=== PATIENT | female | born 1980 | race Hispanic/Latino ===

== ENCOUNTER 2019-02-27 07:41 | Emergency (ER) | payer MEDICAID, OTHER ==
[2019-02-27] MEDS ORDERED: KETOROLAC TROMETHAMINE 30MG/ML ONE (08:09)
== END 2019-02-27 11:54 | disposition home or self-care (01) ==
LOC: EDH 07:41
DX: S20.219A Contusion of unspecified front wall of thorax, initial encounter (principal); Z98.51 Tubal ligation status; W51.XXXA Accidental striking against or bumped into by another person, initial encounter; Y93.89 Activity, other specified; Y92.89 Other specified places as the place of occurrence of the external cause; Y99.8 Other external cause status
CPT/HCPCS: 71046; 84484; 93005; 96374; 99285; J1885